=== PATIENT | female | born 1935 | race Caucasian/White ===

== ENCOUNTER → 2018-02-03 11:15 | Outpatient (CLI) | payer MEDICARE, MEDICAID, SELFPAY ==
[2018-02-03 12:38] LABS: Alanine Aminotransferase 25 IU/L (9-52); Aspartate Aminotransferase 27 IU/L (14-36); BUN Creatinine Ratio 34.3 (6-22); Calcium 9.7 mg/dL (8.4-10.2); Estimated Glomerular Filt Rate > 60.0 mL/min (>60); Glucose 98 mg/dL (80-110); HDL Cholesterol 44 mg/dL (40-60); Potassium 4.3 mmol/L (3.4-5.1); Sodium 144 mmol/L (137-145)
[2018-02-03 12:46] LABS: HEMOLYSIS 22 (0-50)
[2018-02-03 12:48] LABS: Cholesterol 417 mg/dL (140-199); Triglycerides 650 mg/dL (35-150)
[2018-02-03 12:56] LABS: Vitamin D 25 Hydroxy (D3) 60.7 ng/mL (30.0-100.0)
== END ==
PROVIDERS: Visit Provider Internal Medicine
DX: I10 Essential (primary) hypertension (principal); E78.00 Pure hypercholesterolemia, unspecified; M81.0 Age-related osteoporosis without current pathological fracture
CPT/HCPCS: 36415; 80048; 80061; 82306; 84450; 84460

== ENCOUNTER → 2019-08-30 11:51 | Outpatient (ROUT) | payer MEDICARE, MEDICAID, SELFPAY ==
[2019-08-30 12:10] LABS: Alanine Aminotransferase 10 IU/L (<35); Aspartate Aminotransferase 21 IU/L (14-36); BUN Creatinine Ratio 27.8 (6-22); Blood Urea Nitrogen 25 mg/dL (7-17); Carbon Dioxide 30 mmol/L (22-32); Chloride 103 mmol/L (98-107); Cholesterol 256 mg/dL (140-199); Estimated Glomerular Filt Rate 59.8 mL/min (>60); Glucose 107 mg/dL (80-110); HDL Cholesterol 52 mg/dL (40-60); HEMOLYSIS < 15 (0-50); Potassium 4.3 mmol/L (3.4-5.1); Sodium 141 mmol/L (137-145); Triglycerides 435 mg/dL (35-150)
== END ==
PROVIDERS: Visit Provider Internal Medicine
DX: E78.5 Hyperlipidemia, unspecified (principal); I10 Essential (primary) hypertension
CPT/HCPCS: 80048; 80061; 84450; 84460

== ENCOUNTER → 2020-03-27 09:18 | Outpatient (CLI) | payer MEDICARE, MEDICAID, SELFPAY ==
[2020-03-27 10:54] LABS: Alanine Aminotransferase 13 IU/L (<35); Albumin 4.9 g/dL (3.5-5.0); Albumin Globulin Ratio 1.5 (1.0-2.8); Alkaline Phosphatase 62 U/L (38-126); Aspartate Aminotransferase 28 IU/L (14-36); Bilirubin Total 0.5 mg/dL (0.2-1.3); Blood Urea Nitrogen 38 mg/dL (7-17); Calcium 10.5 mg/dL (8.4-10.2); Carbon Dioxide 29 mmol/L (22-32); Chloride 105 mmol/L (98-107); Cholesterol 269 mg/dL (140-199); Globulin 3.3 g/dL (1.7-4.1); Glucose 99 mg/dL (80-110); HDL Cholesterol 53 mg/dL (40-60); HEMOLYSIS < 15 (0-50); Potassium 5.3 mmol/L (3.4-5.1); Sodium 141 mmol/L (137-145); Total Protein 8.2 g/dL (6.3-8.2); Triglycerides 421 mg/dL (35-150)
[2020-03-27 11:06] LABS: Vitamin D 25 Hydroxy (D3) 81.1 ng/mL (30.0-100.0)
== END ==
PROVIDERS: Referring Provider Internal Medicine; Visit Provider Internal Medicine
DX: M85.88 Other specified disorders of bone density and structure, other site (principal); Z78.0 Asymptomatic menopausal state; I10 Essential (primary) hypertension; E78.5 Hyperlipidemia, unspecified; Z90.722 Acquired absence of ovaries, bilateral
CPT/HCPCS: 36415; 77080; 80053; 80061; 82306

== ENCOUNTER → 2021-01-22 14:39 | Outpatient (ROUT) | payer MEDICARE, MEDICAID, SELFPAY ==
[2021-01-22 16:10] LABS: Alanine Aminotransferase 13 IU/L (<35); Albumin 4.4 g/dL (3.5-5.0); Albumin Globulin Ratio 1.5 (1.0-2.8); Alkaline Phosphatase 59 U/L (38-126); Aspartate Aminotransferase 23 IU/L (14-36); BUN Creatinine Ratio 31.5 (6-22); Bilirubin Total 0.3 mg/dL (0.2-1.3); Blood Urea Nitrogen 29 mg/dL (7-17); Calcium 10.1 mg/dL (8.4-10.2); Carbon Dioxide 26 mmol/L (22-32); Chloride 108 mmol/L (98-107); Cholesterol 201 mg/dL (140-199); Estimated Glomerular Filt Rate 58.2 mL/min (>60); Globulin 2.9 g/dL (1.7-4.1); Glucose 98 mg/dL (80-110); HDL Cholesterol 66 mg/dL (40-60); HEMOLYSIS < 15 (0-50); LDL Cholesterol Calculated 83 mg/dL (<100); Potassium 4.2 mmol/L (3.4-5.1); Sodium 144 mmol/L (137-145); Total Protein 7.3 g/dL (6.3-8.2); Triglycerides 261 mg/dL (35-150)
== END ==
PROVIDERS: Visit Provider Internal Medicine
DX: M81.0 Age-related osteoporosis without current pathological fracture (principal); E78.5 Hyperlipidemia, unspecified
CPT/HCPCS: 80053; 80061

== ENCOUNTER → 2021-05-15 11:34 | Outpatient (CLI) | payer MEDICARE, MEDICAID, SELFPAY ==
[2021-05-17 16:10] LABS: C-Telopeptide, Serum 92 pg/mL (.)
== END ==
PROVIDERS: PCP Internal Medicine
DX: M81.0 Age-related osteoporosis without current pathological fracture (principal)
CPT/HCPCS: 36415; 82523

== ENCOUNTER → 2021-09-10 11:02 | Outpatient (CLI) | payer MEDICARE, MEDICAID, SELFPAY ==
[2021-09-17 18:21] LABS: C-Telopeptide, Serum 106 pg/mL (.)
== END ==
PROVIDERS: PCP Internal Medicine
DX: M81.0 Age-related osteoporosis without current pathological fracture (principal)
CPT/HCPCS: 82523

== ENCOUNTER → 2023-07-06 11:02 | Outpatient (CLI) | payer MEDICARE, MEDICAID, SELFPAY ==
--- NOTE | 2023-07-06 | DI.RAD.S_ITS ---
Bone Density Report Name: BRENDEN COYLE Age: 88 Sex: Female Ethnicity: White Date of : 1935 Indication: postmenopausal osteoporosis; Referring Provider: INGRID MORALES Study: Bone densitometry was performed. Exam Date: July 06, 2023 Accession number: [id number] Bone Density: Region BMD T-score Z-score Classification AP Spine(L1-L4) 0.683 -3.3 -0.4 Osteoporosis Femoral Neck (Left) 0.731 -1.1 1.5 Osteopenia Total Hip (Left) 0.850 -0.8 1.6 Normal Femoral Neck (Right) 0.750 -0.9 1.6 Normal Total Hip (Right) 0.876 -0.5 1.8 Normal Total Hip Mean 0.863 -0.7 1.7 Normal World Health Organization criteria for BMD impression classify patients as: Normal (T-score at or above -1.0), Osteopenia (T-score between -1.0 and -2.5), or Osteoporosis (T-score at or below -2.5). 10-year Fracture Risk: FRAX not reported because: Some T-score for Spine Total or Hip Total or Femoral Neck at or below -2.5 Previous Exams: -- Region Exam Age BMD T-score BMD Change BMD Change Date g/cm2 vs Baseline vs Previous -- AP Spine (L1-L4) 07/06/2023 88 0.683 -3.3 0.029 (4.4%)# 0.051 (8.1%)# 03/27/2020 84 0.632 -3.8 -0.022 (-3.4%) 0.021 (3.4%) 02/03/2017 81 0.611 -4.0 -0.043 (-6.6%)* -0.021 (-3.3%) 01/22/2015 79 0.632 -3.8 -0.023 (-3.4%) 0.014 (2.3%) 01/18/2013 77 0.617 -3.9 -0.037 (-5.7%)* -0.002 (-0.3%) 12/24/2009 74 0.619 -3.9 -0.035 (-5.4%)* -0.035 (-5.4%)* 03/16/2005 69 0.654 -3.6 Total Hip(Left) 07/06/2023 88 0.850 -0.8 -0.118 (-12.2%)# -0.031 (-3.6%)# 03/27/2020 84 0.881 -0.5 -0.086 (-8.9%)* 0.016 (1.8%) 02/03/2017 81 0.865 -0.6 -0.102 (-10.6%)* -0.037 (-4.1%)* 01/22/2015 79 0.902 -0.3 -0.066 (-6.8%)* 0.015 (1.7%) 01/18/2013 77 0.887 -0.5 -0.081 (-8.4%)* 0.007 (0.9%) 12/24/2009 74 0.879 -0.5 -0.088 (-9.1%)* -0.088 (-9.1%)* 03/16/2005 69 0.968 0.2 Total Hip(Right) 07/06/2023 88 0.876 -0.5 -0.061 (-6.6%)# -0.001 (-0.1%)# 03/27/2020 84 0.876 -0.5 -0.061 (-6.5%)* -0.014 (-1.5%) 02/03/2017 81 0.890 -0.4 -0.047 (-5.0%)* 0.003 (0.4%) 01/22/2015 79 0.887 -0.5 -0.050 (-5.4%)* 0.029 (3.4%)* 01/18/2013 77 0.858 -0.7 -0.079 (-8.4%)* -0.057 (-6.2%)* 12/24/2009 74 0.915 -0.2 -0.022 (-2.4%) -0.022 (-2.4%) 03/16/2005 69 0.937 0.0 -- *Denotes significance at 95% confidence level, LSC for AP Spine = 0.022 g/cm2, LSC for Total Hip = 0.027 g/cm2 # Denotes dissimilar scan types or analysis methods Impression: The patient has osteoporosis, based on the Total Spine T-score. No significant bone loss was observed. Discussion: INCREASED RISK OF FRACTURE. BONE DENSITY IS UNDESIRABLY LOW AT ONE OR MORE SKELETAL SITES, CONSISTENT WITH POSTMENOPAUSAL OSTEOPOROSIS. This patient's lowest T-score meets the World Health Organization's (WHO) criteria for osteoporosis at one or more sites (T-score -2.5 or below). In untreated patients, the risk of osteoporotic fracture increases approximately two-fold for each 1.0 SD decrease in T-score. Low bone density is not the only risk factor for fracture; also consider factors such as patient's age, frailty or poor health, risk of falling, risk of injury, previous osteoporotic fracture, family history of osteoporosis, cigarette smoking, low body weight, etc. Not everyone with low bone mineral density has osteoporosis; osteomalacia and other metabolic bone disorders should also be considered. Patients who have osteoporosis should be evaluated for specific diseases and conditions (secondary causes) that may cause or contribute to bone loss. The [place] [employer] (AACE) and National Osteoporosis Foundation (NOF) recommend pharmacologic intervention for all postmenopausal women whose T-score is in this range. The patient should follow a healthful lifestyle (good nutrition with adequate calcium and vitamin D, and appropriate weight-bearing exercise). Follow-Up: Consider a repeat BMD and Vertebral Fracture Assessment (VFA) exam in 2 years or sooner if medically necessary, to reassess this patient's status. Reported by: KAYLI OAKES MD on 07/06/2023 11:49:00 AM.
== END ==
PROVIDERS: PCP Internal Medicine; Referring Provider Internal Medicine; Visit Provider Internal Medicine
DX: M81.0 Age-related osteoporosis without current pathological fracture (principal); M85.852 Other specified disorders of bone density and structure, left thigh
CPT/HCPCS: 77080

== ENCOUNTER → 2024-08-29 08:45 | Outpatient (CLI) | payer MEDICARE, MEDICAID, SELFPAY | DX: M81.0 Age-related osteoporosis without current pathological fracture (principal) | CPT/HCPCS: 36415; 82523 ==